=== PATIENT | female | born 1945 ===

== ENCOUNTER 2024-12-18 12:29 | Emergency (ER) | payer MEDICARE, OTHER ==
--- NOTE | 2024-12-18 13:43 | RAD REPORT ---
Exam:Ankle Left 3 View HISTORY: left ankle pain FINDINGS: No fracture or dislocation is seen Soft tissue swelling. Osteoporosis. No fracture or dislocation seen
--- NOTE | 2024-12-18 13:44 | RAD REPORT ---
Exam:Foot Left 3 View CLINICAL HISTORY: Left foot pain FINDINGS: No fracture or dislocation seen Hallux valgus deformity. Osteoporosis. Moderate calcaneal spur
--- NOTE | 2024-12-18 13:55 | EDPHYS ---
Physician Documentation [facility] Name: Sendy Hopson Age: 79 yrs Sex: Female : 1945 Arrival Date: 12/18/2024 Time: 12:29 Bed IW1 Private MD: ED Physician Vladimir Sweet HPI: 12/18 13:27 This 79 yrs old Female presents to ER via Ambulatory with complaints of Ankle Injury. rn 13:27 The patient presents with an injury, pain. The complaints affect the left ankle. rn 13:27 Onset: The symptoms/episode began/occurred 12 day(s) ago. Associated signs and rn symptoms: Pertinent positives: swelling, Pertinent negatives: weakness. Modifying factors: The symptoms are alleviated by elevation of extremity, the symptoms are aggravated by weight bearing, movement. Severity of symptoms: At their worst the symptoms were mild, in the emergency department the symptoms are unchanged. The patient has not experienced similar symptoms in the past. Patient reports fell 12 days ago, left foot was rolled and reports pain in the mid and outer left foot. Swelling improves with leg elevation but returns the next day. Still bruised. Denies any pain proximal to the ankle. No open wounds.. Historical: - Allergies: 12:49 unknown antibiotic; iw - Infectious Disease History:: Denies. - Social history:: Smoking status: . - Family history:: not pertinent. - Hospitalizations: : No recent hospitalization is reported. ROS: 13:27 Constitutional: Negative for fever, chills, and weight loss, MS/Extremity: Positive for rn left ankle injury and swelling Skin: Positive for ecchymosis to the left foot Exam: 13:27 Constitutional: This is a well developed, well nourished patient who is awake, alert, rn and in no acute distress. MS/ Extremity: Pulses equal, no cyanosis. Neurovascular intact. Mild swelling at ankle, without focal bony tenderness of either malleolus. Able to plantar and dorsiflex foot without trouble or tenderness along Achilles tendon. Ecchymosis and tenderness of the midfoot. No open wounds or lacerations. Neuro: Awake and alert, GCS 15 Vital Signs: 12:49 BP 155 / 97; Pulse 62; Resp 16; iw 12:49 BP 155 / 97; Pulse 64; Resp 16; Temp 97.6; Pulse Ox 100% on R/A; iw MDM: 12:34 Medical Screening Exam initiated rn 13:53 Differential diagnosis: fracture, sprain. Data reviewed: vital signs, nurses notes, rn radiologic studies, plain films, and as a result, I will discharge patient. Counseling: I had a detailed discussion with the patient and/or guardian regarding the historical points, exam findings, and any diagnostic results supporting the discharge/admit diagnosis, radiology results, the need for outpatient follow up, to return to the emergency department if symptoms worsen or persist or if there are any questions or concerns that arise at home. Special discussion: I discussed with the patient/guardian in detail that at this point there is no indication for admission to the hospital. It is understood, however, that if the symptoms persist or worsen the patient needs to return immediately for re-evaluation. ED course: X-ray images left foot and ankle negative for acute fracture or dislocation per my interpretation. 12/18 12:53 Order name: XRAY Ankle LEFT 3 view; Complete Time: 13:47 rn 12/18 12:53 Order name: XRAY Foot LEFT 3 View; Complete Time: 13:47 rn Administered Medications: No medications were administered Disposition Summary: 12/18/24 13:54 Discharge Ordered Notes: Location: Home rn Problem: new rn Symptoms: have improved rn Condition: Stable rn Diagnosis - Other sprain of left foot rn Followup: rn - With: Private Physician - When: As needed - Reason: Recheck today's complaints, Re-evaluation by your physician Discharge Instructions: - Discharge Summary Sheet rn - Ankle Sprain rn - Foot Sprain rn Forms: - Medication Reconciliation Form rn - Antibiotic furniture cleaner - Prescription Opioid Use rn - Patient Portal Instructions rn - Leadership Thank You Letter rn Signatures: Dispatcher Federica Ryder, RN RN Vladimir Humphreys MD MD rn
--- NOTE | 2024-12-18 13:55 | ER ---
Nurse's Notes [facility] Name: Sendy Hopson Age: 79 yrs Sex: Female : 1945 Arrival Date: 12/18/2024 Time: 12:29 Bed IW1 Private MD: Diagnosis: Other sprain of left foot Presentation: 12/18 12:48 Coronavirus screen: At this time, the client does not indicate any symptoms associated iw with coronavirus-19. Ebola Screen: No symptoms or risks identified at this time. 12:48 Method Of Arrival: Ambulatory iw 12:48 Acuity: YONNY 4 iw 12:49 Chief complaint: Patient states: was walking across the living room, fel forward and iw injured her left ankle , happened 12 days ago. Initial Sepsis Screen: Does the patient meet any 2 criteria? No. Patient's initial sepsis screen is negative. Does the patient have a suspected source of infection? No. Patient's initial sepsis screen is negative. Risk Assessment: Do you want to hurt yourself or someone else? Patient reports no desire to harm self or others. Historical: - Allergies: 12:49 unknown antibiotic; iw - Infectious Disease History:: Denies. - Social history:: Smoking status: . - Family history:: not pertinent. - Hospitalizations: : No recent hospitalization is reported. Assessment: 12:50 General: Appears in no apparent distress. Behavior is calm, cooperative. Pain: iw Complains of pain in left lateral ankle, left schmitz, anterior aspect of left ankle and dorsum of left foot. Neuro: Level of Consciousness is awake, alert, obeys commands, Oriented to person, place, time, situation, Moves all extremities. Full function. Cardiovascular: Patient's skin is warm and dry. Respiratory: Respiratory effort is even, unlabored, Respiratory pattern is regular. Derm: Skin is intact. Musculoskeletal: Range of motion: limited in left ankle Swelling present in left foot and anterior aspect of left ankle. Injury Description: Bruise sustained to dorsum of left foot. Vital Signs: 12:49 BP 155 / 97; Pulse 62; Resp 16; iw 12:49 BP 155 / 97; Pulse 64; Resp 16; Temp 97.6; Pulse Ox 100% on R/A; iw ED Course: 12:33 Patient arrived in ED. al6 12:34 Vladimir Sweet MD is Attending Physician. rn 12:48 Triage completed. iw 12:50 Arm band placed on. iw 13:23 XRAY Ankle LEFT 3 view In Process Unspecified. EDMS 13:23 XRAY Foot LEFT 3 View In Process Unspecified. EDMS 14:43 Federica Montelongo RN is Primary Nurse. iw Administered Medications: No medications were administered Medication: 12:50 VIS not applicable for this client. iw Outcome: 13:54 Discharge ordered by . rn 14:43 Patient left the ED. iw Signatures: Dispatcher [employer] EDFederica Horta, MARIANA RN Vladimir Humphreys MD MD rn Landin, Alissa al6
[2024-12-18 15:51] VITALS: BP 155/97; TEMP 97.6; O2SAT 100
== END 2024-12-18 14:43 | disposition home or self-care (01) ==
LOC: ER 12:29
DX: S93.692A Other sprain of left foot, initial encounter (principal); W18.30XA Fall on same level, unspecified, initial encounter
CPT/HCPCS: 99281